=== PATIENT | male | born 1930 | race Caucasian/White ===

== ENCOUNTER 2020-12-26 11:11 | Emergency (ER) | payer OTHER, MEDICARE, BC ==
[~2020-12-26] VITALS: Ht 188 cm; Wt 106.8 kg
[~2020-12-26 11:11] MED LIST: ACET-1008 PO; ASPI-1265 PO; ATOR20TA66 PO; CARB15DR EACHEYE; CHOL10002 PO; CYCL1DRO EACHEYE; ENAL20TA75 PO; FERR325T32 PO; FLUO15OI15 TP; HYDR28CR14 TOP; TRIA15CR61 TOP; VIT1CAPS46 PO; XAL0.005OS OP
[2020-12-26 11:40] VITALS: BP_SYST 94
[2020-12-26] MEDS ORDERED: CEPH250T PO (14:42)
== END 2020-12-26 15:33 | disposition home or self-care (01) ==
LOC: ER 11:12
DX: S61.211A Laceration without foreign body of left index finger without damage to nail, initial encounter (principal); S61.213A Laceration without foreign body of left middle finger without damage to nail, initial encounter; I10 Essential (primary) hypertension; Z98.890 Other specified postprocedural states; Z79.82 Long term (current) use of aspirin; Z88.2 Allergy status to sulfonamides; Z79.01 Long term (current) use of anticoagulants; W22.8XXA Striking against or struck by other objects, initial encounter; Y93.89 Activity, other specified; Y92.009 Unspecified place in unspecified non-institutional (private) residence as the place of occurrence of the external cause; Y99.8 Other external cause status
CPT/HCPCS: 12002; 73130; 99283